=== PATIENT | male | born 1980 | race Native Hawaiian/Other Pacific Islander ===

== ENCOUNTER 2017-12-19 06:03 | Emergency (ER) | payer SELFPAY ==
[2017-12-19 06:17] VITALS: BP 116/75; PULSE 63; RESP 14; TEMP 97.6; O2SAT 100
--- NOTE | 2017-12-19 06:43 | ED PDOC ---
HPI: Abdomen Time Seen by Provider: 12/19/17 06:12 Chief Complaint (Nursing): Abdominal Pain Chief Complaint (Provider): Abdominal Pain History Per: Patient History/Exam Limitations: no limitations Onset/Duration Of Symptoms: Hrs (x8) Current Symptoms Are (Timing): Still Present Location Of Pain/Discomfort: Diffuse Quality Of Discomfort: Unable To Describe Associated Symptoms: Fever, Nausea, Diarrhea. denies: Vomiting Additional Complaint(s): 37 y/o Turkish male with no significant PMHx presents to the ED complaining of abdominal pain, onset 8 hours ago. Patient reports of abdominal pain was associated with 2 episodes of mild diarrhea, nausea and fever. Patient reports pain at onset rated at 7/10 but is now 3/10. Patient additionally reports of taking Pepto-Bismol with no relief. Denies vomiting. PMD: No Provider Past Medical History Reviewed: Historical Data, Nursing Documentation, Vital Signs Vital Signs: Last Vital Signs Temp 97.6 F 12/19/17 06:14 Pulse 63 12/19/17 06:14 Resp 14 12/19/17 06:14 BP 116/75 12/19/17 06:14 Pulse Ox 100 12/19/17 06:49 - Medical History PMH: No Chronic Diseases - Surgical History Surgical History: No Surg Hx - Family History Family History: States: No Known Family Hx - Allergies Allergies/Adverse Reactions: Allergies Allergy/AdvReac Type Severity Reaction Status Date / Time No Known Allergies Allergy Verified 12/19/17 06:13 Review of Systems ROS Statement: Except As Marked, All Systems Reviewed And Found Negative Constitutional: Positive for: Fever Gastrointestinal: Positive for: Nausea, Abdominal Pain, Diarrhea. Negative for : Vomiting Physical Exam - Reviewed Nursing Documentation Reviewed: Yes Vital Signs Reviewed: Yes - Physical Exam Appears: Positive for: Non-toxic, No Acute Distress Head Exam: Positive for: ATRAUMATIC, NORMOCEPHALIC Skin: Positive for: Normal Color, Warm, Dry Eye Exam: Positive for: Normal appearance, EOMI, PERRL Neck: Positive for: Normal, Painless ROM Cardiovascular/Chest: Positive for: Regular Rate, Rhythm. Negative for: Murmur Respiratory: Positive for: Normal Breath Sounds. Negative for: Respiratory Distress Gastrointestinal/Abdominal: Positive for: Normal Exam, Soft, Tenderness ( Diffuse tenderness to palpation), Distended (Diffusely) Extremity: Positive for: Normal ROM. Negative for: Deformity Neurologic/Psych: Positive for: Alert, Oriented. Negative for: Motor/Sensory Deficits - ECG O2 Sat by Pulse Oximetry: 100 (RA) Pulse Ox Interpretation: Normal Medical Decision Making Medical Decision Making: Time: 636 Impression: 37 y/o Turkish male with abdominal pain. Plan: -- Bentyl 20 mg PO -- Tylenol 650 mg PO -- Labs and CT were to be ordered however patient has declined further testing. Patient citing concern about bill and possible radiation exposure. Patient was initially informed that provider would order lab testing. However, patient declined lab testing. Patient requested Tylenol and reports he will return if symptoms worsen. -- Patient refuses further care, evaluation or treatment in the ER. Patient informed of the reasons for the following and planned treatment, which patient understands, however still refuses. Patient informed of the risk and benefits of treatment. Informed that the risk could include worsening of current conditions, undiagnosed conditions, disability or even . Patient understands the following risk and the benefits of treatment. Patient has the capacity to make decisions and still refuses treatment by RN, PA and ER MD. Patient encouraged to return to the ER at any time and to follow up with PMD. - Patient signed out AMA with a diagnosis of abdominal pain. Scribe Attestation: Documented by Hamilton Kaur acting as a scribe for John Jordan MD. Provider Scribe Attestation: All medical record entries made by the Scribe were at my direction and personally dictated by me. I have reviewed the chart and agree that the record accurately reflects my personal performance of the history, physical exam, medical decision making, and the department course for this patient. I have also personally directed, reviewed, and agree with the discharge instructions and disposition. Disposition - Clinical Impression Clinical Impression: Abdominal pain - Patient ED Disposition Is Patient to be Admitted: No - Disposition Disposition: Against Medical Advice Disposition Time: 06:50 Condition: FAIR Forms: [employer] (Kyrgyz)
== END 2017-12-19 07:23 | disposition home or self-care (01) ==
LOC: H.ER 06:03
DX: R10.9 Unspecified abdominal pain (principal)